=== PATIENT | female | born 1970 | race American Indian/Alaskan Native ===

== ENCOUNTER 2018-01-22 12:56 | Outpatient (CLI) | payer OTHER ==
--- NOTE | 2018-01-22 22:25 | XRay Report ---
FINAL REPORT PROCEDURE: XR KNEE 4+V RT TECHNIQUE: Right knee, four views HISTORY: RIGHT KNEE PAIN COMPARISON: No prior studies are available for comparison. FINDINGS: There are mild osteoarthritic changes in the medial and patellofemoral compartments, with joint space narrowing osteophyte formation. No acute fracture or dislocation is seen. No joint effusion. IMPRESSION: Mild osteoarthritis.
== END 2018-01-22 12:57 | disposition home or self-care (01) ==
LOC: XRAY 12:56
PROVIDERS: ATTEND Orthopaedic Surgery
DX: M17.11 Unilateral primary osteoarthritis, right knee (principal)

== ENCOUNTER 2021-08-17 15:45 | Emergency (ER) | payer SELFPAY ==
[2021-08-17] MEDS ORDERED: SODIUM CHLORIDE 0.9% 1000 ML 1,000 ML IV ONE (16:29)
[2021-08-17] MEDS ORDERED: MORPHINE 4 MG/1 ML INJ IV ONE ×2 (16:29→20:22)
[2021-08-17] MEDS ORDERED: ONDANSETRON 4 MG/2 ML INJ IV ONE (16:29)
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
[2021-08-17 17:18] LABS: Hematocrit 28.7 % (30.3-42.9); Hemoglobin 8.6 gm/dl (10.1-14.3); Mean Corpuscular HGB Conc 30 % (30-34); Platelet Count 282 K/mm3 (140-440); Red Cell Distribution Width 18.6 % (13.2-15.2)
[2021-08-17 17:44] LABS: Alanine Aminotransferase 13 units/L (7-56); Albumin 4.6 g/dL (3.9-5); Blood Urea Nitrogen 8 mg/dL (7-17); Calcium 9.1 mg/dL (8.4-10.2); Hemolysis Index 3
[2021-08-17 17:52] LABS: Mean Corpuscular Volume 59 fl (79-97)
[2021-08-17 17:54] LABS: BUN/Creatinine Ratio 16
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
[2021-08-17 19:22] LABS: Anisocytosis 1+; Hypochromasia 3+; Poikilocytosis 1+; Total Cells Counted 100
[2021-08-17 19:23] LABS: Ovalocytes Few; Platelet Estimate Consistent w Auto; Schistocytes Rare; Tear Drop Cells Few
[2021-08-17 20:51] LABS: Bilirubin,Urine Negative (Negative); Color,Urine Colorless (Yellow)
[2021-08-17 20:52] LABS: Blood,Urine Negative (Negative); Urobilinogen,Urine < 2.0 mg/dL (<2.0)
[2021-08-17] MEDS ORDERED: HYDROmorphone 1 MG/1 ML INJ IV ONE (21:42)
[2021-08-17 22:07] VITALS: BP 112/78
--- NOTE | 2021-08-21 14:39 | Electrocardiograph Report ---
[facility] Test Date: 2021-08-17 Test Time: 15:59:45 Pat Name: HUGH ASHER Department: Room: Gender: F [employer]: IRINEO : [id number] Requested By: CHANDLER MARTEL Order Number: [id number] Reading MD: Jossie Kaplan Measurements Intervals [place] Rate: 72 P: 54 WA: 210 QRS: 32 QRSD: 93 T: 54 QT: 456 QTc: 498 Interpretive Statements Sinus rhythm with occasional PVCs Prolonged WA interval Consider left ventricular hypertrophy No previous ECG available for comparison Electronically Signed On 08-21-2021 14:39:40 EDT by Jossie Kaplan
== END 2021-08-17 22:41 ==
LOC: ED 15:45
DX: S22.20XA Unspecified fracture of sternum, initial encounter for closed fracture (principal); S13.4XXA Sprain of ligaments of cervical spine, initial encounter; S00.03XA Contusion of scalp, initial encounter; S30.1XXA Contusion of abdominal wall, initial encounter; F17.200 Nicotine dependence, unspecified, uncomplicated; Z79.899 Other long term (current) drug therapy; K42.9 Umbilical hernia without obstruction or gangrene; K76.89 Other specified diseases of liver; V89.2XXA Person injured in unspecified motor-vehicle accident, traffic, initial encounter; Y93.89 Activity, other specified; Y92.488 Other paved roadways as the place of occurrence of the external cause; Y99.8 Other external cause status
CPT/HCPCS: 36415; 70450; 71260; 72125; 74177; 80053; 81001; 83690; 85007; 85025; 93005; 96361; 96374; 96375; 96376; 99285; J1170; J2270; J2405; J7030; Q9967